=== PATIENT | male | born 1995 | race Caucasian/White ===

== ENCOUNTER 2023-01-13 13:05 | Outpatient (CLI) | payer OTHER, SELFPAY | END 2023-01-13 13:06 | disposition home or self-care (01) | PROVIDERS: PCP Family Medicine; Visit Provider Family Medicine | DX: Z00.00 Encounter for general adult medical examination without abnormal findings (principal); E66.9 Obesity, unspecified | CPT/HCPCS: 80048; 80061 ==

== ENCOUNTER 2023-08-02 14:45 | Outpatient (RCR) | payer OTHER, SELFPAY ==
--- NOTE | 2023-06-02 12:47 | OT.OPOE ---
OT Outpatient Ortho Eval OT Outpatient Ortho Eval* Start: 06/02/23 12:03 Freq: Status: Active Protocol: Document 06/02/23 12:03 LIZZIELeatha (Rec: 06/02/23 12:43 LIZZIELeatha [id number]) E-signed By Eneida eZe, OTR/L, CLT OT OP Ortho Eval Details Complexity Complexity Medium Insurance Information Insurance Information [facility] Outpatient History/Precautions Current Condition/Medical Diagnosis Referring Provider Dr. Mendel Robb Treatment Diagnosis M25.522 Pain at L elbow; R20.2 Paresthesia of skin Date of Onset End of Apr 2023 Other Precautions MEDICAL DX(s): Carpal tunnel syndrome on both sides (Acute) G56.03 - Carpal tunnel syndrome, bilateral upper limbs (ICD-10) Cubital tunnel syndrome on left (Acute) G56.22 - Lesion of ulnar nerve, left upper limb (ICD-10) Other Conditions Carpal tunnel syndrome on both sides (Acute) G56.03 - Carpal tunnel syndrome, bilateral upper limbs (ICD-10) Cubital tunnel syndrome on left (Acute) G56.22 - Lesion of ulnar nerve, left upper limb (ICD-10) IT band syndrome (Acute) M76. 30 - Iliotibial band syndrome, unspecified leg (ICD-10) Elbow pain, left (Acute) M25. 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 Patient was told that he a carpal tunnel and recommended for activity modifications level recommended, he has had a resolution of the right-hand symptoms but continues have intermittent numbness and tingling of the left hand involving both the thumb and the pinky, he also and the main reason for presentation has associated left elbow pain . He has past injury to his elbow remotely, some type of a fracture. He has aching pain extending from the elbow to the 5th digit and has occasional numbness and tingling of that 5th digit along with numbness and tingling of the thumb. He does spend a lot of time on a computer, when he is not doing that, he plays video games in his leisure time. Pain Assessment Pain Present Pain Present Pain Reported Location Left Elbow Description Tightness,Pressure,Throbbing Intensity 5 Hand Pinch/Oncology Physician Assistant Strength Hand Right Oncology Physician Assistant Strength Position 1 (lbs) 95 Oncology Physician Assistant Strength Position 2 (lbs) 99 Lateral Pinch Strength (lbs) 24 Three Point Pinch (lbs) 24 Tip Pinch Strength (lbs) 15 Left Oncology Physician Assistant Strength Position 1 (lbs) 80 Oncology Physician Assistant Strength Position 2 (lbs) 90 Lateral Pinch Strength (lbs) 24 Three Point Pinch (lbs) 18 Tip Pinch Strength (lbs) 15 Comments Comments bilaterally, 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 Other Problems Computer Patient Potential Excellent Assessment Assessment Assessment 28-year-old male patient was seen in Urgent care on the 15 of May and then had an office visit with his PCP on the with the Chief compliant of bilateral numbness and tingling in the hands, as well as pain at the L lateral elbow. Patient was told that he a carpal tunnel and recommended for activity modifications level recommended, he has had a resolution of the right-hand symptoms but continues have intermittent numbness and tingling of the left hand involving both the thumb and the pinky, he also and the main reason for presentation has associated left elbow pain . He has past injury to his elbow remotely, some type of a fracture. He has aching pain extending from the elbow to the 5th digit and has occasional numbness and tingling of that 5th digit along with numbness and tingling of the thumb. He does spend a lot of time on a computer, when he is not doing that, he plays video games in his leisure time. Occupational Therapy Treatment Plan - OP Potential Rehabilitation Potential Excellent Set Goals Goals Set with Patient Yes Goals Goals 1. Patient will verbalize 3 activity modifications to decrease abusive/overloading of the muscles, joints & tendons. 2. 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 3. Through activity participation in skilled therapy sessions, and consistency in performing a customized HEP, patient will improve capacity of tendons and muscles to manage load in order to have less pain with ADLs, work, leisure activities and IADLs. 4. Pt will display improved B shoulder ER, IR , low and mid trap, >/= 4+ /5 to hang up clothes in his closet, put dishes away in overhead cabinets and perform all work duties w/o discomfort. Target Date 8 weeks Treatment Plan Treatment Plan Evaluation,Edema Control, Iontophoresis,Joint Mobilization,Manual Therapy, Ultrasound,Therapeutic Exercise,Self Care/Home Management,Education Expected Frequency 1-2x Week Expected Duration 8-10 Weeks Home Program Home Program Home Program Initiated Home Program Specifics Access Code: [email or web address] URL: [email or web address] Date: 06/02/2023 Prepared by: Eneida Zee Exercises - Standing Ulnar Nerve [place] - 1 x daily - 7 x weekly - 3 sets - 10 reps - Ulnar nerve towel sliders - 1 x daily - 7 x weekly - 3 sets - 10 reps - Ulnar Nerve Butterfly - 1 x daily - 7 x weekly - 3 sets - 10 reps - Ulnar Nerve Tensioner - 1 x daily - 7 x weekly - 3 sets - 10 reps - Prone Single Arm Shoulder Y - 1 x daily - 7 x weekly - 3 sets - 10 reps - Standing Shoulder Row with Anchored Resistance - 1 x daily - 7 x weekly - 3 sets - 10 reps - Serratus Activation at Wall with Foam Roll and Resistance Band - 1 x daily - 7 x weekly - 3 sets - 10 reps Recertification Information Recertification Information Initial Certification Date 06/02/23 Recertification Due Date 08/31/23 Click To Default 'Per treatment plan' Per treatment plan Continued Plan of Care and Interventions Per treatment plan Provider Signature Shows Agreement With POC & Medical Necessity Physician Comment/Change Comment or Changes Physician NPI Number #
== END 2023-08-02 16:02 | disposition home or self-care (01) ==
PROVIDERS: PCP Family Medicine; Visit Provider Family Medicine
DX: G56.03 Carpal tunnel syndrome, bilateral upper limbs (principal); G56.22 Lesion of ulnar nerve, left upper limb; M25.522 Pain in left elbow; R20.2 Paresthesia of skin; Z51.89 Encounter for other specified aftercare
CPT/HCPCS: 97035; 97110; 97140; 97166; X5282

== ENCOUNTER 2023-10-17 11:19 | Outpatient (CLI) | payer OTHER, SELFPAY | END 2023-10-17 11:20 | disposition home or self-care (01) | LOC: LKVREF 11:21 | PROVIDERS: PCP Family Medicine; Visit Provider Family Medicine | DX: E78.00 Pure hypercholesterolemia, unspecified (principal); Z13.228 Encounter for screening for other metabolic disorders; Z13.29 Encounter for screening for other suspected endocrine disorder | CPT/HCPCS: 80053; 80061; 84443 ==

== ENCOUNTER 2024-01-20 12:56 | Outpatient (CLI) | payer OTHER, SELFPAY | END 2024-01-20 12:57 | disposition home or self-care (01) | LOC: NFLDREF 01-24 14:13 | PROVIDERS: PCP Family Medicine; Referring Provider Family Medicine; Visit Provider Family Medicine | DX: Z00.00 Encounter for general adult medical examination without abnormal findings (principal); E66.9 Obesity, unspecified; E78.00 Pure hypercholesterolemia, unspecified; R79.89 Other specified abnormal findings of blood chemistry; R03.0 Elevated blood-pressure reading, without diagnosis of hypertension | CPT/HCPCS: 80061; 80076 ==

== ENCOUNTER 2024-05-25 11:45 | Outpatient (CLI) | payer OTHER, SELFPAY | END 2024-05-25 11:46 | disposition home or self-care (01) | LOC: NFLDREF 05-29 05:18 | PROVIDERS: PCP Family Medicine; Referring Provider Family Medicine; Visit Provider Family Medicine | DX: E78.00 Pure hypercholesterolemia, unspecified (principal); R79.89 Other specified abnormal findings of blood chemistry | CPT/HCPCS: 80061; 80076 ==

== ENCOUNTER 2024-08-09 11:45 | Outpatient (CLI) | payer OTHER, SELFPAY | END 2024-08-09 11:46 | disposition home or self-care (01) | PROVIDERS: PCP Family Medicine; Visit Provider Family Medicine | DX: R11.0 Nausea (principal); R79.89 Other specified abnormal findings of blood chemistry; N39.0 Urinary tract infection, site not specified; R10.9 Unspecified abdominal pain | CPT/HCPCS: 80076; 83690; 87086 ==

== ENCOUNTER 2025-01-30 08:54 | Outpatient (CLI) | payer OTHER, SELFPAY ==
--- NOTE | 2025-01-30 09:15 | CRLHL7_ITS ---
For Patients: As a result of the Century Cures Act, medical imaging exams and procedure reports are released immediately into your electronic medical record. You may view this report before your referring provider. If you have questions, please contact your health care provider. Indication: Radiculopathy. Technique: Multiplanar multisequence noncontrast MR images of the cervical spine. Comparison: None. Findings: The cervical lordosis is maintained. Slight leftward cervical curvature. Vertebral body heights are preserved. No acute fracture or spondylolisthesis. No T1 hypointense lesions or marrow edema. The cervical cord is normal in signal intensity. C2-3 through C4-5: No spinal canal or neural foraminal narrowing. C5-6: Annular bulge. No spinal canal or neural foraminal narrowing. C6-7: No spinal canal or neural foraminal narrowing. C7-T1: Minimal left uncinate spurring. No spinal canal or neural foraminal narrowing. T1-2: No spinal canal or neural foraminal narrowing. Impression: Minimal cervical spondylosis without spinal canal or neural foraminal stenosis. Dictated by Rick Montero MD @ 01/30/2025 3:05:46 PM (Electronically Signed)
== END 2025-01-30 08:55 | disposition home or self-care (01) ==
LOC: MRI 08:55
PROVIDERS: PCP Family Medicine; Visit Provider Family Medicine
DX: M54.12 Radiculopathy, cervical region (principal); M47.812 Spondylosis without myelopathy or radiculopathy, cervical region
CPT/HCPCS: 72141